=== PATIENT | male | born 1965 | race Caucasian/White ===

== ENCOUNTER 2018-07-01 12:13 | Emergency (ER) | payer BC ==
[~2018-07-01] VITALS: Ht 165.1 cm; Wt 106.1 kg
[2018-07-01 12:17] VITALS: Ht 165.1 cm; Wt 106.1 kg
[2018-07-01] MEDS ORDERED: ALBUTEROL 0.083% (NEB) 2.5 MG/3 ML AMP NEB STA (13:29)
[2018-07-01] MEDS ORDERED: IPRATROPIUM (NEB) 0.5 MG/2.5 ML AMP NEB STA (13:29)
[2018-07-01] MEDS ORDERED: IBUPROFEN 800 MG TAB PO ONE (13:30)
--- NOTE | 2018-07-01 13:37 | ERD ---
ER Documentation Chief Complaint Chief Complaint PRODUCTIVE COUGH X2DAYS WITH SOB/FEVER HPI This is a 53-year-old gentleman who presents to the emergency room with 3 days of symptoms that include cough and congestion. He describes his cough is slightly productive of yellowish sputum. Subjective fevers at home. Patient describes musculoskeletal pain of the chest wall that occurs with coughing. He denies any pleuritic pain, no chest pressure or exertional symptoms. The patient is a non-smoker. No recent travel, sick contacts or antibiotics. During the patient's encounter translation services were utilized Language: [place]ian Source: In person ROS All systems reviewed and are negative except as per history of present illness. Medications Home Meds Active Scripts Ibuprofen* (Motrin*) 800 Mg Tab, 800 MG PO Q6H PRN for PAIN AND OR ELEVATED TEMP, #30 TAB Prov:LUCINDA DALEY MD 07/01/18 Azithromycin* (Zithromax*) 250 Mg Tablet, 250 MG PO .ZPACK DIRECTED, #6 TAB TAKE 500 MG (2 TABS) THE FIRST DAY THEN 250 MG (1 TAB) DAYS 2-5 Prov:LUCINDA DALEY MD 07/01/18 Albuterol Sulfate* (Ventolin HFA*) 18 Gm Hfa.aer.ad, 2 PUFF INHALATION Q4H, #1 INHALER Prov:LUCINDA DALEY MD 07/01/18 Allergies Allergies: Coded Allergies: No Known Allergy (Unverified , 07/01/18) FmHx Family History: No diabetes Physical Exam Vitals Vital Signs Date Temp Pulse Resp B/P (MAP) Pulse Ox O2 O2 Flow FiO2 Time Delivery Rate 07/01/18 96 18 161/91 98 Nasal 2.0 14:38 (114) Cannula 07/01/18 Nasal 3.0 13:45 Cannula 07/01/18 3.0 13:40 07/01/18 100 20 99 Nasal 3.0 13:40 Cannula 07/01/18 99.4 91 22 192/93 91 12:17 (126) Physical Exam General: Well developed, well nourished, no acute distress Head: Normocephalic, atraumatic. Eyes: Pupils equally reactive, EOM intact ENT: Moist mucous membranes Neck: Supple, no lymphadenopathy Respiratory: Scant wheeze at the base without respiratory distress, good aeration Cardiovascular: RRR, no murmurs, rubs, or gallops Abdominal: Soft, non-tender, non-distended, no peritoneal signs : Deferred MSK: No edema, no unilateral swelling, 5/5 strength Neurologic: Alert and oriented, moving all extremities, normal speech, no focal weakness, no cerebellar signs Skin: No rash Psych: Normal mood Results 24 hrs Current Medications Medications Dose Sig/Marcellus Start Time Status Last (Trade) Ordered Route PRN Stop Time Admin Dose Reason Admin Albuterol 2.5 mg ONCE STAT 07/01/18 DC 07/01/18 (Proventil NEB 13:29 13:37 0.083% (Neb)) 07/01/18 13:31 Ipratropium 0.5 mg ONCE STAT 07/01/18 DC 07/01/18 [place] NEB 13:29 13:37 (Atrovent 07/01/18 13:31 0.02% (Neb)) Ibuprofen 800 mg ONCE ONCE 07/01/18 DC 07/01/18 (Motrin) PO 13:30 13:38 07/01/18 13:31 Procedures/MDM EKG, MONITORS, & DIAGNOSTIC IMAGING: Chest x-ray: Chest x-ray: I reviewed and interpreted a 1 view of the chest Mediastinum: No enlargement Cardiac silhouette: No cardiomegaly Airspace: Clear lung wallace bilaterally without evidence of pneumothorax Bones: No evidence of fracture MEDICAL DECISION MAKING: The patient is a presentation consistent with either viral acute bronchitis versus mini acquired pneumonia. The patient is otherwise extremely well- appearing without significant comorbidities. Patient does have a borderline oxygen saturation but he has excellent aeration and no respiratory distress. I believe even if this is a bacterial pneumonia patient will likely do well on an outpatient basis. Patient will benefit from breathing treatment, Motrin, chest x-ray. No signs or symptoms or history suggestive of cardiac etiology such as ACS or pulmonary embolism. ER COURSE: * Patient received a breathing treatment and has improved symptoms with still has cough. His oxygen saturation on room air has been around 94%. He is resting comfortably. I believe outpatient therapy would be appropriate. With strict return precautions that were discussed with the patient. * Given the patient's persistent cough I do believe empiric azithromycin for community acquired pneumonia coverage would be appropriate. CONSULTATION: [None] DISPOSITION PLAN: The patient does not have an identifiable emergent medical condition that warrants inpatient hospitalization at this time. The patient is deemed safe for discharge with outpatient follow-up. We discussed follow up with the patient's primary care doctor within 24 to 48 hours as needed. We also discussed return to the emergency room for worsening symptoms or worsening condition. Outpatient referral: None required Discharge Medications: Azithromycin, albuterol, Motrin Departure Diagnosis: Primary Impression: Acute lower respiratory tract infection Condition: Stable LUCINDA DALEY MD Jul 01, 2018 13:37
[2018-07-01 14:38] VITALS: BP 161/91; PULSE 96; RESP 18
[2018-07-01] MEDS ORDERED: AZIT250T PO (14:40)
[2018-07-01] MEDS ORDERED: ALBU18HF INHALATION (14:40)
[2018-07-01] MEDS ORDERED: IBUP800T48 PO (14:40)
== END 2018-07-01 14:52 | disposition home or self-care (01) ==
LOC: E/R 12:13
DX: J22 Unspecified acute lower respiratory infection (principal)
CPT/HCPCS: 71045; 94664; Z7502; Z7610